=== PATIENT | female | born 1990 | race Caucasian/White ===

== ENCOUNTER → 2017-02-15 | Outpatient (CLI) | payer MEDICAID | LOC: COL.RAD 09:19 | DX: M54.32 Sciatica, left side (principal) ==

== ENCOUNTER 2017-03-24 08:30 | Outpatient (RCR) | payer MEDICAID | END 2017-03-24 09:14 | disposition home or self-care (01) | LOC: WSPT 08:30 | DX: M54.32 Sciatica, left side (principal) ==

== ENCOUNTER → 2017-06-27 | Outpatient (CLI) | payer MEDICAID | LOC: COL.RAD 09:32 | DX: R10.11 Right upper quadrant pain (principal); Z97.5 Presence of (intrauterine) contraceptive device ==

== ENCOUNTER 2017-07-03 15:22 | Emergency (ER) | payer MEDICAID ==
[~2017-07-03] VITALS: Ht 167.6 cm; Wt 64.5 kg
[2017-07-03 15:47] LABS: BASO # 0.1 (0.0-0.2); BASO % 0.5 % (0.0-2.0); EOS # 0.2 (0.0-0.7); EOS % 2.2 % (0-4.0); GRAN # 6.3 (1.4-6.5); GRAN % 60.3 % (42.2-75.2); HEMATOCRIT 39.2 % (37.0-47.0); HEMOGLOBIN 13.5 g/dl (12.5-16.0); LYMPH # 3.3 (1.2-3.4); LYMPH % 31.3 % (20.0-51.0); MEAN CELL VOLUME 91 fl (80.0-100.0); MEAN CORPUSCULAR HEMOGLOBIN 31 pg (27.0-31.0); MEAN CORPUSCULAR HGB CONC 34 g/dl (33.0-37.0); MEAN PLATELET VOLUME 11.4 fl (7.4-10.4); MONO # 0.6 (0.1-0.6); MONO % 5.5 % (1.7-9.3); PLATELET COUNT 312 K/mm3 (130-400); RED BLOOD COUNT 4.32 M/mm3 (4.10-5.30); REDCELL DISTRIBUTION WIDTH-CV 12.1 % (11.5-14.5)
[2017-07-03 15:55] LABS: COLLECTION METHOD CLEAN CATCH
[2017-07-03 15:57] LABS: ALANINE AMINOTRANSFERASE 23 U/L (9-52); ALBUMIN 4.6 gm/dL (3.5-5.0); ALKALINE PHOSPHATASE 35 U/L (50-136); ANION GAP 17 mmol/L (7-16); AST,SGOT 18 U/L (15-37); BILIRUBIN,TOTAL 0.7 mg/dL (0.0-1.0); BLOOD UREA NITROGEN 10 mg/dL (7-17); CALCIUM 9.8 mg/dL (8.4-10.2); CARBON DIOXIDE 24 mmol/L (22-30); CHLORIDE 103 mmol/L (98-107); CREATININE, serum 0.56 mg/dL (0.52-1.25); GLUCOSE 98 mg/dL (74-106); LIPASE 134 U/L (23-300); POTASSIUM 3.7 mmol/L (3.4-5.0); SODIUM 144 mmol/L (137-145); TOTAL PROTEIN 8.8 gm/dL (6.4-8.2)
[2017-07-03 16:00] LABS: C-REACTIVE PROTEIN < 0.5 mg/dL (0.0-0.9)
[2017-07-03 16:01] LABS: MUCOUS Present /lpf; PH 6 (5-8); SQUAMOUS EPITHELIAL 0-2 /hpf; URINE APPEARANCE Clear; URINE BACTERIA None Seen /hpf; URINE BILIRUBIN Negative (NEGATIVE); URINE BLOOD 1+ (NEGATIVE); URINE COLOR Straw; URINE GLUCOSE Negative (NEGATIVE); URINE KETONE Negative (NEGATIVE); URINE LEUKOCYTE ESTERASE Negative (NEGATIVE); URINE NITRATE Negative (NEGATIVE); URINE PROTEIN(semi-quant) Negative (NEGATIVE); URINE RBC 0-2 /hpf; URINE UROBILINOGEN Negative (NEGATIVE)
[2017-07-03] MEDS ORDERED: KLONOPIN 0.5MG0.5 MG PO (16:14)
[2017-07-03] MEDS ORDERED: NORCO 325 MG-51 TAB PO (16:25)
[2017-07-03 16:40] VITALS: BP 133/67; PULSE 76; TEMP 97.9
== END 2017-07-03 16:40 | disposition home or self-care (01) ==
LOC: COL.ER 15:22
PROVIDERS: Family Medicine
DX: R10.11 Right upper quadrant pain (principal); Z90.89 Acquired absence of other organs
CPT/HCPCS: J1885; J7030

== ENCOUNTER → 2017-07-06 | Outpatient (CLI) | payer MEDICAID ==
[~2017-07-06] MED LIST: KLONOPIN 0.5MG0.5 MG PO; NORCO 325 MG-51 TAB PO
== END ==
LOC: COL.RAD 14:41
DX: R10.11 Right upper quadrant pain (principal)